=== PATIENT | male | born 1970 | race Caucasian/White ===

== ENCOUNTER 2021-09-09 07:40 | Observation (INO) | payer BC ==
[~2021-09-09] VITALS: Ht 185.4 cm; Wt 122.7 kg
[2021-09-09 08:10] LABS: BASOPHILS % (AUTO) 0.2 % (0-1); EOSINOPHILS # (AUTO) 0.1 X10'3 (0-0.9); EOSINOPHILS % (AUTO) 1.9 % (0-6); HEMATOCRIT 43.9 % (42.0-52.0); LYMPHOCYTES # (AUTO) 1.5 X10'3 (1.1-4.8); LYMPHOCYTES % (AUTO) 21.2 % (21-51); MEAN CORPUSCULAR HEMOGLOBIN 30.7 PG (27.0-31.0); MEAN CORPUSCULAR HGB CONC 34.3 g/dL (33.0-36.5); MEAN CORPUSCULAR VOLUME 89.5 FL (78-98); MONOCYTES # (AUTO) 0.6 X10'3 (0-0.9); MONOCYTES % (AUTO) 9.2 % (2-12); NEUTROPHILS # (AUTO) 4.7 X10'3 (1.8-7.7); NEUTROPHILS % (AUTO) 67.5 % (42-75); PLATELET COUNT 279 X10'3 (140-440); RED CELL DISTRIBUTION WIDTH 13.7 % (11.5-14.5); WHITE BLOOD COUNT 6.9 X10'3 (4.5-11.0)
[2021-09-09 08:25] LABS: ALANINE AMINOTRANSFERASE 37 U/L (12-78); ALBUMIN 3.8 G/DL (3.4-5.0); ALBUMIN/GLOBULIN RATIO 1.1 (1.1-1.5); ALKALINE PHOSPHATASE 67 IU/L (46-116); ANION GAP 10 (8-16); ASPARTATE AMINO TRANSFERASE 16 U/L (10-37); BILIRUBIN,TOTAL 0.4 MG/DL (0.1-1.0); BLOOD UREA NITROGEN 18 MG/DL (7-18); BUN/CREATININE RATIO 16.8 (5.4-32.0); CALCIUM 9.1 MG/DL (8.5-10.1); CHLORIDE 109 MMOL/L (99-107); CREATININE 1.07 MG/DL (0.60-1.10); GLUCOSE 109 MG/DL (70-104); POTASSIUM 4.4 MMOL/L (3.5-5.1); SODIUM 145 MMOL/L (135-145); TOTAL CARBON DIOXIDE 26.2 MMOL/L (24-32); TOTAL PROTEIN 7.3 G/DL (6.4-8.2); eGFR 73 ML/MIN
[2021-09-09] MEDS ORDERED: aspirin 81mg tab.chew PO ONE (08:50)
[2021-09-09] MEDS ORDERED: nitroGLYCERIN 0.4mg SUBLingual tab SL PRN ×2 (08:50→15:15)
[2021-09-09] MEDS ORDERED: LISI1TAB51 PO (12:51)
[2021-09-09] MEDS ORDERED: metoprolol tartrate 1mg/ml inj IV PRN (15:15)
[2021-09-09] MEDS ORDERED: ondansetron/PF 4mg/2ml inj IV PRN (15:15)
[2021-09-09] MEDS ORDERED: morphine 2 MG/ML inj. syringe IV PRN (15:15)
[2021-09-09] MEDS ORDERED: magnesium hydroxide 30ml (MOM) UD suspension PO PRN (15:15)
[2021-09-09] MEDS ORDERED: mag hydrox/Alum hydrox/simeth 30ml oral suspension PO PRN (15:15)
[2021-09-09] MEDS ORDERED: regadenoson 0.4mg/5ml syringe IV ONE (15:15)
[2021-09-09] MEDS ORDERED: acetaminophen 325mg tablet PO PRN (15:15)
[2021-09-09] MEDS ORDERED: aminophylline 250mg/10ml inj. IV PRN (15:15)
[2021-09-09] MEDS: normal saline 1000ml 1,000 ML IV SCH (15:27)
[2021-09-09] MEDS: docusate sod 100mg capsule PO SCH (20:00)
[2021-09-09 20:30] LABS: CHOL/HDL RATIO 4.2 (0.00-4.99); CHOLESTEROL 190 MG/DL (0-200); HDL CHOLESTEROL 45 MG/DL (35-60); LDL CHOLESTEROL 128 MG/DL (50-100); TRIGLYCERIDES 112 MG/DL (20-135)
--- NOTE | 2021-09-09 21:30 | NUR ---
Patient in room PCU 3023. I have received report from ED and had the opportunity to ask questions and assume patient care.
[2021-09-09 22:00] VITALS: BP 145/81
[2021-09-10] VITALS (10 sets, daily range): BP systolic 126–162; BP diastolic 66–91
[2021-09-10] MEDS: normal saline 1000ml 1,000 ML IV SCH ×2 (05:29→09:36)
[2021-09-10 06:18] LABS: BASOPHILS % (AUTO) 0.3 % (0-1); EOSINOPHILS # (AUTO) 0.2 X10'3 (0-0.9); EOSINOPHILS % (AUTO) 2.1 % (0-6); HEMATOCRIT 43.8 % (42.0-52.0); HEMOGLOBIN 14.8 g/dl (14.0-17.9); LYMPHOCYTES # (AUTO) 1.9 X10'3 (1.1-4.8); LYMPHOCYTES % (AUTO) 26.1 % (21-51); MEAN CORPUSCULAR HEMOGLOBIN 30.5 PG (27.0-31.0); MEAN CORPUSCULAR HGB CONC 33.8 g/dL (33.0-36.5); MEAN CORPUSCULAR VOLUME 90.4 FL (78-98); MEAN PLATELET VOLUME 7.4 FL (7.4-10.4); MONOCYTES # (AUTO) 0.7 X10'3 (0-0.9); MONOCYTES % (AUTO) 9.2 % (2-12); NEUTROPHILS # (AUTO) 4.5 X10'3 (1.8-7.7); NEUTROPHILS % (AUTO) 62.3 % (42-75); PLATELET COUNT 273 X10'3 (140-440); RED BLOOD COUNT 4.85 X10'6 (4.70-6.10); RED CELL DISTRIBUTION WIDTH 14.1 % (11.5-14.5); WHITE BLOOD COUNT 7.2 X10'3 (4.5-11.0)
--- NOTE | 2021-09-10 06:20 | NUR ---
Problems reprioritized. Patient report given, questions answered & plan of care reviewed with FANTA Erazo.
--- NOTE | 2021-09-10 06:30 | NUR ---
Patient in room PCU 3023. I have received report from Amparo JEWELL and had the opportunity to ask questions and assume patient care.
[2021-09-10 06:32] LABS: ALBUMIN 3.5 G/DL (3.4-5.0); ANION GAP 6 (8-16); BLOOD UREA NITROGEN 13 MG/DL (7-18); CALCIUM 8.8 MG/DL (8.5-10.1); CHLORIDE 108 MMOL/L (99-107); CREATININE 1.08 MG/DL (0.60-1.10); GLUCOSE 93 MG/DL (70-104); POTASSIUM 4.2 MMOL/L (3.5-5.1); SODIUM 140 MMOL/L (135-145); TOTAL CARBON DIOXIDE 25.9 MMOL/L (24-32); eGFR 72 ML/MIN
[2021-09-10] MEDS ORDERED: enoxaparin 40mg/0.4ml syringe SUBCUT SCH (08:00)
[2021-09-10] MEDS ORDERED: aspirin 81mg, enteric-coated 1 TAB TABLET.DR PO SCH (08:00)
[2021-09-10] MEDS: docusate sod 100mg capsule PO SCH (09:00)
--- NOTE | 2021-09-10 13:11 | NUR ---
Paged Dr. Herman regarding stress test results. PAGER ID: [phone] MESSAGE: [phone]. CHARLES CASTILLO. STRESS TEST RESULTS ARE IN. THANK YOU. LOUIS JEWELL X [phone]
--- NOTE | 2021-09-10 13:47 | NUR ---
REGARDING REFERRAL/DISCHARGE PAGER ID: [phone] MESSAGE: ROOM 3023A CHARLES CASTILLO, PATIENT ASKING FOR A CARDIOLOGY REFERRAL FOR DR DURON, AND ASKING IF YOU CAN SEE THEM PRIOR TO DISCHARGING HIM. THANK YOU, MARVIN JEWELL [phone]
[2021-09-10] MEDS ORDERED: PANT-47 PO (13:53)
== END 2021-09-10 15:18 | disposition home or self-care (01) ==
LOC: ER 07:41 → ED HOLD 15:17 → PCU 3S 21:15
PROVIDERS: ADMIT Family Medicine; ATTEND Family Medicine
DX: K21.9 Gastro-esophageal reflux disease without esophagitis (principal); Z20.822 Contact with and (suspected) exposure to COVID-19; R07.89 Other chest pain; I10 Essential (primary) hypertension; E66.9 Obesity, unspecified; Z79.899 Other long term (current) drug therapy
CPT/HCPCS: 36415; 71045; 78452; 80048; 80053; 80061; 83880; 84484; 85025; 87081; 87635; 93005; 93017; 93306; 96360; 96361; 96372; 99285; A9500; C9803; G0378; J7030; J1650

== ENCOUNTER 2022-12-23 20:55 | Emergency (ER) | payer BC ==
[~2022-12-23] VITALS: Ht 185.4 cm; Wt 139.8 kg
[~2022-12-23 20:55] MED LIST: LISI1TAB51 PO; PANT-47 PO
[2022-12-23 21:39] LABS: BASOPHILS % (AUTO) 0.3 % (0-1); EOSINOPHILS # (AUTO) 0.2 X10'3 (0-0.9); EOSINOPHILS % (AUTO) 2.9 % (0-6); HEMATOCRIT 47.5 % (42.0-52.0); HEMOGLOBIN 15.5 g/dl (14.0-17.9); LYMPHOCYTES # (AUTO) 2.3 X10'3 (1.1-4.8); LYMPHOCYTES % (AUTO) 30.3 % (21-51); MEAN CORPUSCULAR HEMOGLOBIN 29.9 PG (27.0-31.0); MEAN CORPUSCULAR HGB CONC 32.7 g/dL (33.0-36.5); MEAN CORPUSCULAR VOLUME 91.6 FL (78-98); MEAN PLATELET VOLUME 7.1 FL (7.4-10.4); MONOCYTES # (AUTO) 0.8 X10'3 (0-0.9); MONOCYTES % (AUTO) 11.2 % (2-12); NEUTROPHILS # (AUTO) 4.2 X10'3 (1.8-7.7); NEUTROPHILS % (AUTO) 55.3 % (42-75); PLATELET COUNT 335 X10'3 (140-440); RED BLOOD COUNT 5.19 X10'6 (4.70-6.10); RED CELL DISTRIBUTION WIDTH 13.9 % (11.5-14.5); WHITE BLOOD COUNT 7.5 X10'3 (4.5-11.0)
[2022-12-23 21:50] LABS: ALANINE AMINOTRANSFERASE 61 U/L (12-78); ALBUMIN 4.1 G/DL (3.4-5.0); ALBUMIN/GLOBULIN RATIO 1.2 (1.1-1.5); ALKALINE PHOSPHATASE 74 IU/L (46-116); ANION GAP 11 (8-16); ASPARTATE AMINO TRANSFERASE 40 U/L (10-37); BILIRUBIN,TOTAL 0.2 MG/DL (0.1-1.0); BLOOD UREA NITROGEN 19 MG/DL (7-18); BUN/CREATININE RATIO 18.4 (5.4-32.0); CALCIUM 9.7 MG/DL (8.5-10.1); CHLORIDE 105 MMOL/L (99-107); CREATININE 1.03 MG/DL (0.60-1.10); GLUCOSE 122 MG/DL (70-104); LIPASE 206 U/L (73-393); POTASSIUM 3.8 MMOL/L (3.5-5.1); SODIUM 144 MMOL/L (135-145); TOTAL CARBON DIOXIDE 28.5 MMOL/L (24-32); TOTAL PROTEIN 7.6 G/DL (6.4-8.2); eGFR 76 ML/MIN
[2022-12-24] MEDS ORDERED: ATOR20TA66 PO (02:33)
[2022-12-24] MEDS ORDERED: morphine 4 MG/ML inj SYRINge IV ONE (02:40)
[2022-12-24] MEDS ORDERED: ondansetron/PF 4mg/2ml inj IV ONE (02:40)
[2022-12-24] MEDS ORDERED: ketorolac trometh inj. 60 MG/2 ML VIAL IM ONE (02:40)
[2022-12-24 03:25] LABS: CLARITY,URINE CLEAR (Clear); COLOR,URINE YELLOW (Yellow); GLUCOSE, URINE NEGATIVE (Neg); KETONES,URINE NEGATIVE (Neg); LEUKOCYTE ESTERASE ,URINE NEGATIVE (Neg); NITRITES, URINE NEGATIVE (Neg); OCCULT BLOOD,URINE NEGATIVE (Neg); PH,URINE 5.5 (4.8-8.0); PROTEIN,URINE NEGATIVE (Neg); UROBILINOGEN,URINE 0.2 E.U/dL (0.2-1.0)
[2022-12-24 03:27] LABS: UA COLLECTION TYPE CLN CATCH MIDSTREAM
[2022-12-24] MEDS ORDERED: HYDR-3965 PO (03:32)
[2022-12-24] MEDS ORDERED: ONDA8TAB13 PO (03:32)
[2022-12-24 04:02] VITALS: BP 155/78
== END 2022-12-24 04:25 | disposition home or self-care (01) ==
LOC: ER 20:56
DX: K80.20 Calculus of gallbladder without cholecystitis without obstruction (principal); I10 Essential (primary) hypertension; Z72.89 Other problems related to lifestyle; Z79.899 Other long term (current) drug therapy; Z88.8 Allergy status to other drugs, medicaments and biological substances
CPT/HCPCS: 36415; 80053; 81003; 83690; 84145; 85025; 96372; 96374; 96375; 99284; J1885; J2270; J2405

== ENCOUNTER 2023-03-16 05:46 | Day surgery (SDC) | payer BC ==
[2023-03-12 14:54] LABS: BASOPHILS % (AUTO) 0.3 % (0-1); EOSINOPHILS # (AUTO) 0.2 X10'3 (0-0.9); EOSINOPHILS % (AUTO) 1.9 % (0-6); LYMPHOCYTES # (AUTO) 2.2 X10'3 (1.1-4.8); LYMPHOCYTES % (AUTO) 25.7 % (21-51); MEAN CORPUSCULAR HEMOGLOBIN 29.7 PG (27.0-31.0); MEAN CORPUSCULAR HGB CONC 32.8 g/dL (33.0-36.5); MEAN CORPUSCULAR VOLUME 90.3 FL (78-98); MEAN PLATELET VOLUME 6.8 FL (7.4-10.4); MONOCYTES # (AUTO) 0.9 X10'3 (0-0.9); MONOCYTES % (AUTO) 10.6 % (2-12); NEUTROPHILS # (AUTO) 5.3 X10'3 (1.8-7.7); NEUTROPHILS % (AUTO) 61.5 % (42-75); PRE OP HEMATOCRIT 45.1 % (42.0-52.0); PRE OP HEMOGLOBIN 14.8 g/dL (14.0-17.9); PRE OP PLATELET COUNT 340 X10'3 (140-440); RED CELL DISTRIBUTION WIDTH 14.2 % (11.5-14.5)
[2023-03-12 14:57] LABS: ALBUMIN 4.1 G/DL (3.4-5.0); ALBUMIN/GLOBULIN RATIO 1.2 (1.1-1.5); ALKALINE PHOSPHATASE 86 IU/L (46-116); BLOOD UREA NITROGEN 21 MG/DL (7-18); BUN/CREATININE RATIO 16.8 (10.0-20.0); CALCIUM 9.2 MG/DL (8.5-10.1); CHLORIDE 106 MMOL/L (99-107); CREATININE 1.25 MG/DL (0.60-1.10); PRE OP ALT 73 U/L (30-65); PRE OP ANION GAP 8 (8-16); PRE OP AST 28 U/L (10-37); PRE OP BILIRUB, TOTAL 0.5 MG/DL (0.0-1.0); PRE OP GLUCOSE 118 MG/DL (70-104); PRE OP POTASSIUM 3.9 MMOL/L (3.4-5.1); PRE OP SODIUM 140 MMOL/L (135-145); TOTAL PROTEIN 7.5 G/DL (6.4-8.2); eGFR 60 ML/MIN
[~2023-03-16] VITALS: Ht 185.4 cm; Wt 137.3 kg
[~2023-03-16 05:46] MED LIST changes: +ATOR20TA66 PO; +GLUCOSAMINE; +MULTIVITAMIN; +OMEP20TA23 PO; -PANT-47 PO; +TURMERIC; +VITAMIN B COMPLEX; +VITAMIN C; +VITAMIN D3; +ceFAZolin inj. 3,000 MG in normal saline 100ml IV soln 100 ML IV ONE; +famotidine 20mg tablet PO ONE; +ringers solution, lacted 1,000 ML IV SCH
[2023-03-16 06:33] VITALS: BP 139/85
[2023-03-16 06:34] VITALS: BP 139/85
[2023-03-16] MEDS ORDERED: BUPIVAcaine/PF 2.5mg/ml (0.25%) 10ml vial ONE (06:49)
[2023-03-16] MEDS ORDERED: LIDOcaine 1% 30ml preserv. free vial ONE (08:19)
[2023-03-16] MEDS ORDERED: fentaNYL/PF 50MCG/1 ML 2ML syringe ONE (08:20)
[2023-03-16] MEDS ORDERED: midazolam 1 mg/ML 2ml injection ONE (08:20)
[2023-03-16] MEDS ORDERED: BUPIVAcaine/PF 2.5mg/ml (0.25%) 10ml vial IJ ONE (08:48)
[2023-03-16 08:56] VITALS: BP 123/81
--- NOTE | 2023-03-16 08:56 | NUR ---
Received from OR via [facility], accompanied by Anesthesiologist and report given by ALLY Anesthesiologist. PATIENT WAKING UP, DENIES PAIN, V/S WNL, SCD ON, PIV 20G TO LEFT HAND, RIGHT WRIST DRESSING C/D/I. ICE AND ELEVATED RUE. Addendum: 03/16/23 at 0931 by Tommie Worthington RN Amended: Links added.
[2023-03-16 09:10] VITALS: BP 115/86
[2023-03-16 09:20] VITALS: BP 128/88
[2023-03-16 09:30] VITALS: BP 144/98
--- NOTE | 2023-03-16 09:36 | NUR ---
ALL DISCHARGE CRITERIA HAS BEEN MET. VSS, PAIN AT A TOLERABLE LEVEL, ABLE TO SAFELY AMBULATE AND TRANSFER SELF. IV TAKEN OUT WITHOUT ANY COMPLICATIONS. ALL DISCHARGE INSTRUCTIONS COVERED WITH PATIENT AND ALL QUESTIONS ANSWERED. PATIENT TAKEN OUT VIA WHEELCHAIR WITH ALL BELONGINGS TO PERSONAL VEHICLE WHERE FAMILY DROVE PATIENT HOME. Addendum: 03/16/23 at 0943 by Tommie Worthington RN Amended: Links added.
== END 2023-03-16 09:36 | disposition home or self-care (01) ==
LOC: PAS 05:46
PROVIDERS: ATTEND Orthopaedic Surgery Hand Surgery
DX: G56.01 Carpal tunnel syndrome, right upper limb (principal); E66.01 Morbid (severe) obesity due to excess calories; Z68.39 Body mass index [BMI] 39.0-39.9, adult; G47.30 Sleep apnea, unspecified; K21.9 Gastro-esophageal reflux disease without esophagitis; I10 Essential (primary) hypertension; Z98.890 Other specified postprocedural states; Z79.899 Other long term (current) drug therapy; Z88.5 Allergy status to narcotic agent; Z72.89 Other problems related to lifestyle; Z82.49 Family history of ischemic heart disease and other diseases of the circulatory system
CPT/HCPCS: 29848; 36415; 80053; 82948; 85025; 93005; J0690; J2250; J3010; J3490; J7030; J7120; Z7506; Z7512; A4215; A6449; A7000

== ENCOUNTER 2023-04-17 07:27 | Day surgery (SDC) | payer BC ==
[2023-04-16 14:06] LABS: BASOPHILS % (AUTO) 0.5 % (0-1); EOSINOPHILS # (AUTO) 0.1 X10'3 (0-0.9); LYMPHOCYTES % (AUTO) 28.1 % (21-51); MEAN CORPUSCULAR HEMOGLOBIN 30.4 PG (27.0-31.0); MEAN CORPUSCULAR HGB CONC 33.6 g/dL (33.0-36.5); MEAN CORPUSCULAR VOLUME 90.5 FL (78-98); MEAN PLATELET VOLUME 6.8 FL (7.4-10.4); MONOCYTES # (AUTO) 0.8 X10'3 (0-0.9); MONOCYTES % (AUTO) 11.5 % (2-12); NEUTROPHILS # (AUTO) 4.1 X10'3 (1.8-7.7); NEUTROPHILS % (AUTO) 57.9 % (42-75); PRE OP HEMATOCRIT 44.2 % (42.0-52.0); PRE OP HEMOGLOBIN 14.9 g/dL (14.0-17.9); PRE OP PLATELET COUNT 307 X10'3 (140-440); RED BLOOD COUNT 4.89 X10'6 (4.70-6.10); RED CELL DISTRIBUTION WIDTH 13.9 % (11.5-14.5)
[2023-04-16 14:17] LABS: ALBUMIN 3.9 G/DL (3.4-5.0); ALBUMIN/GLOBULIN RATIO 1.2 (1.1-1.5); ALKALINE PHOSPHATASE 73 IU/L (46-116); BLOOD UREA NITROGEN 23 MG/DL (7-18); BUN/CREATININE RATIO 20.9 (10.0-20.0); CALCIUM 9.2 MG/DL (8.5-10.1); CHLORIDE 105 MMOL/L (99-107); PRE OP ALT 69 U/L (30-65); PRE OP ANION GAP 7 (8-16); PRE OP AST 26 U/L (10-37); PRE OP BILIRUB, TOTAL 0.4 MG/DL (0.0-1.0); PRE OP GLUCOSE 101 MG/DL (70-104); PRE OP SODIUM 140 MMOL/L (135-145); TOTAL CARBON DIOXIDE 27.7 MMOL/L (24-32); TOTAL PROTEIN 7.1 G/DL (6.4-8.2); eGFR 70 ML/MIN
[~2023-04-17] VITALS: Ht 185.4 cm; Wt 140.2 kg
[~2023-04-17 07:27] MED LIST changes: +LIDOcaine 0.5% (5mg/ml) 50ml vial ONE
[2023-04-17 07:35] VITALS: BP 159/96
[2023-04-17] MEDS ORDERED: morphine 4 MG/ML inj SYRINge IV PRN (08:05)
[2023-04-17] MEDS ORDERED: labetalol 20mg/4ml (5mg/ml) syringe IV PRN (08:05)
[2023-04-17] MEDS ORDERED: ringers solution, lacted 1,000 ML IV SCH (08:05)
[2023-04-17] MEDS ORDERED: ondansetron/PF 4mg/2ml inj IV PRN (08:05)
[2023-04-17] MEDS ORDERED: hydrALAZINE 20mg/ml inj. IV PRN (08:05)
[2023-04-17] MEDS ORDERED: proCHLORperazine 10 MG/2 ml inj IV PRN (08:05)
[2023-04-17] MEDS ORDERED: acetaminophen 1,000mg/100ml IV 100 ML IV PRN (08:05)
[2023-04-17] MEDS ORDERED: morphine 2 MG/ML inj. syringe IV PRN (08:05)
[2023-04-17] MEDS ORDERED: HYDROmorphone/PF 0.2 MG/ML SYRINGE IV PRN ×2 (08:05)
[2023-04-17] MEDS ORDERED: fentaNYL/PF 50MCG/1 ML 2ML syringe ONE (09:39)
[2023-04-17] MEDS ORDERED: midazolam 1 mg/ML 2ml injection ONE (09:41)
[2023-04-17] MEDS ORDERED: propofol inj 20 ML IV ONE (09:53)
[2023-04-17 10:05] VITALS: BP 141/89
--- NOTE | 2023-04-17 10:05 | NUR ---
Received from OR via [facility] TO RR 7, accompanied by Anesthesiologist DR RUANO and report given by Anesthesiolgist. PT PRESENTS WITH PIV 20G RIGHTH HAND, ARIANNA HOPE. Addendum: 04/17/23 at 1015 by Yessica Seo RN, RN Amended: Links added.
[2023-04-17] MEDS ORDERED: BUPIVAcaine/PF 2.5 mg/ml (0.25%) 30ml vial IJ ONE (10:06)
[2023-04-17 10:20] VITALS: BP 152/99
[2023-04-17 10:30] VITALS: BP 149/85
[2023-04-17 10:35] VITALS: BP 149/85
--- NOTE | 2023-04-17 10:35 | NUR ---
DC HOME: ALL DISCHARGE CRITERIA HAS BEEN MET. VSS, PAIN AT A TOLERABLE LEVEL, VOIDING AND ABLE TO SAFELY AMBULATE AND TRANSFER SELF. IV TAKEN OUT WITHOUT ANY COMPLICATIONS. ALL DISCHARGE INSTRUCTIONS COVERED WITH PATIENT AND ALL QUESTIONS ANSWERED. PATIENT TAKEN OUT VIA WHEELCHAIR TO PERSONAL VEHICLE WHERE FAMILY/FRIEND DROVE PATIENT HOME. Addendum: 04/17/23 at 1112 by Yessica Seo RN, RN Amended: Links added.
== END 2023-04-17 10:35 | disposition home or self-care (01) ==
LOC: PAS 07:27
PROVIDERS: ATTEND Orthopaedic Surgery Hand Surgery
DX: G56.02 Carpal tunnel syndrome, left upper limb (principal); E78.00 Pure hypercholesterolemia, unspecified; I10 Essential (primary) hypertension; G47.33 Obstructive sleep apnea (adult) (pediatric); E66.9 Obesity, unspecified; Z68.39 Body mass index [BMI] 39.0-39.9, adult; K21.9 Gastro-esophageal reflux disease without esophagitis; Z88.8 Allergy status to other drugs, medicaments and biological substances; Z72.89 Other problems related to lifestyle; Z79.899 Other long term (current) drug therapy; Z98.890 Other specified postprocedural states; Z82.49 Family history of ischemic heart disease and other diseases of the circulatory system
CPT/HCPCS: 29848; 36415; 80053; 82948; 85025; J0690; J2250; J2704; J3010; J3490; J7030; J7120; Z7506; Z7512; A4215; A7000